=== PATIENT | male | born 1955 | race Caucasian/White ===

== ENCOUNTER 2021-12-29 12:38 | Emergency (ER) | payer MEDICARE ==
[2021-12-29] MEDS ORDERED: methylPREDNISolone Sod Succ/PF 125 MG/2 ML VIAL ONE (13:38)
[2021-12-29] MEDS ORDERED: diphenhydrAMINE 50 MG/ML VIAL ONE (13:38)
[2021-12-29] MEDS ORDERED: Famotidine/PF 20 mg/2ml Vial ONE (13:39)
== END 2021-12-29 14:51 | disposition home or self-care (01) ==
LOC: ERS 12:38
DX: L50.0 Allergic urticaria (principal); I10 Essential (primary) hypertension; J45.909 Unspecified asthma, uncomplicated; K21.9 Gastro-esophageal reflux disease without esophagitis; I25.2 Old myocardial infarction; M06.9 Rheumatoid arthritis, unspecified; Z79.899 Other long term (current) drug therapy
CPT/HCPCS: 96374; 96375; J1200; J2930; S0028